=== PATIENT | male | born 1985 | race African-American/Black ===

== ENCOUNTER 2022-08-07 12:44 | Outpatient (CLI) | payer OTHER ==
--- NOTE | 2022-08-07 17:11 | XRAY Report ---
PROCEDURE: Elbow 2 View LT INDICATIONS: PAIN IN LEFT ELBOW TECHNIQUE: 2 views of the elbow were acquired. COMPARISON: FINDINGS: Bones: No fractures or dislocations. No suspicious bony lesions. Soft tissues: No elbow joint effusion. No suspicious soft tissue calcifications. Ovoid soft tissue calcification measures 1.2 x 0.5 cm associated with the triceps tendon near the musculotendinous martha ction IMPRESSION: 1. Ovoid soft tissue calcification near the triceps musculotendinous junction may reflect prior traum a or calcific tendinitis. Reviewed by: Parmjit Myers MD on 08/07/2022 4:10 PM GAIL Approved by: Parmjit Myers MD on 08/07/2022 4:10 PM AKCALVIN Station ID: [id number]
== END 2022-08-07 12:45 | disposition home or self-care (01) ==
LOC: DI 12:44
PROVIDERS: ATTEND Internal Medicine
DX: R93.6 Abnormal findings on diagnostic imaging of limbs (principal); R93.89 Abnormal findings on diagnostic imaging of other specified body structures

== ENCOUNTER 2024-02-12 10:47 | Outpatient (CLI) | payer OTHER ==
--- NOTE | 2024-02-12 11:47 | CARDIAC PROCEDURE NOTE ---
Stress Test Report Service Date: 02/12/24 Service Time: 11:00 Ordering Provider: Booker Duarte PA-C Indication for Test: Assess exertional chest discomfort. Significant Medical History: Modesta is referred for an ETT today, to evaluate intermittent episodes of upper left-sided chest discomfort, described as "baby stabs", that have occurred a few times while he was working out on his treadmill. The first time he noticed this was about 8 minutes into exercise, prompting him to discontinue, with relief following rest and massaging the area in about 2 minutes. There have been a couple of other episodes, which have not been associated with radiation of the discomfort, GI symptoms nor diaphoresis and he reports continuing to play softball, basketball and weightlifting without having any of the symptoms. They have not occurred at rest. He does have a history of GERD and recently was able to identify some triggering foods that he has reduced in his diet and he also started famotidine 20 mg daily at his care team's recommendation, with a decrease in his dyspepsia symptoms (which are clearly different than those for which he is referred for testing today). Cardiac Risk Factors: Negative for documented hypertension, diabetes, hyperlipidemia and family history of atherosclerotic disease; he was an intermittent cigar smoker but has discontinued this recently, with probably only a mild increase in attributable risk for CAD. Type of Stress Test: Exercise Treadmill Test (ETT) Procedure: -Exercise Treadmill Test- After signing informed consent, the patient performed treadmill exercise using a Gregory protocol. The patient exercised for 12 minutes 31 seconds and achieved a peak heart rate of 179 (98 percent predicted maximum heart rate for age), and an estimated workload of 13.8 METS. The test was terminated due to fatigue/shortness of breath. Resting heart rate: 82 Peak heart rate: 179 Normal response to exercise. Resting BP: 147/88 Peak BP: 213/91 Elevated SBP at rest with physiologic BP response to exercise. Room air oxygen saturation was 95-98% during exercise. Rhythm during exercise: Sinus rhythm throughout without ectopy. Symptoms: He denied experiencing any chest pressure/discomfort/pain. EKG at rest showed normal sinus rhythm with left anterior fascicular block pattern. EKG at peak stress showed no ischemia by EKG criteria. In Recovery HR and BP decreased, though both remained elevated at 8:35 (HR 107, BP 149/99). No imaging was ordered with this stress test. I, Cruz Salgado MD, was present throughout this treadmill stress study and supervised it in its entirety. Summary: 1) Exercise tolerance average for age and sex as evidenced by SHARONA of 1%. 2) Abnormal resting EKG, though with an interpretable ST/T pattern. 3) Adequate level of exercise was achieved on this treadmill stress test. 4) Elevated systolic BP at rest with normal BP response to exercise. 5) No ischemic changes by EKG criteria were seen at peak stress. 6) No imaging was ordered with this test. Conclusions and Recommendations: 1) These are reassuring ETT results, with exercise tolerance that is average for age and sex and no symptom nor EKG evidence of inducible ischemia. 2) Although recent in-clinic BP was recorded as 126/85 and Modesta has no major family nor personal history of hypertension, his resting EKG shows a left anterior fascicular block pattern and the post-exercise decline in blood pressure was delayed, both of which suggest the possibility of occult hypertension or the propensity to have this. I therefore advised him to try to reduce sodium intake in his diet and that obtaining a good automated arm BP cuff and doing periodic BP monitoring would likely be advantageous moving forward. I told him that if his pressures are running >140 and/or >90 more than rarely, he should report this to his care team for advice regarding antihypertensive medication treatment, to reduce long-term risks of stroke and heart failure.
== END 2024-02-12 10:48 | disposition home or self-care (01) ==
LOC: DI 10:47
PROVIDERS: ATTEND Student in an Organized Health Care Education/Training Program
DX: R07.9 Chest pain, unspecified (principal); Z87.891 Personal history of nicotine dependence
CPT/HCPCS: 93017